=== PATIENT | female | born 2000 | race Caucasian/White ===

== ENCOUNTER 2020-06-28 22:19 | Emergency (ER) | payer OTHER ==
[2020-06-29 00:35] LABS: HEMOGLOBIN 10.5 gm/dl (12.3-15.3); RED BLOOD COUNT 3.96 M/UL (4.00-5.10)
[2020-06-29 00:51] LABS: BUN/CREATININE RATIO 23 (0-10)
== END 2020-06-29 01:49 | disposition home or self-care (01) ==
LOC: ER1 22:19
PROVIDERS: Family Medicine
DX: O20.9 Hemorrhage in early pregnancy, unspecified (principal); O24.911 Unspecified diabetes mellitus in pregnancy, first trimester; O99.331 Smoking (tobacco) complicating pregnancy, first trimester; F17.290 Nicotine dependence, other tobacco product, uncomplicated; Z88.0 Allergy status to penicillin; Z91.040 Latex allergy status; Z3A.10 10 weeks gestation of pregnancy
CPT/HCPCS: 80053; 81001; 83690; 84703; 85025; 99284

== ENCOUNTER 2020-10-10 19:48 | Outpatient (CLI) | payer OTHER | END 2020-10-10 21:00 | disposition home or self-care (01) | LOC: GENOP 19:48 | DX: O42.913 Preterm premature rupture of membranes, unspecified as to length of time between rupture and onset of labor, third trimester (principal); Z3A.35 35 weeks gestation of pregnancy | CPT/HCPCS: 83518; G0463 ==

== ENCOUNTER 2021-03-17 12:24 | Emergency (ER) | payer OTHER | END 2021-03-17 14:52 | disposition home or self-care (01) | LOC: ER1 12:24 | DX: S83.92XA Sprain of unspecified site of left knee, initial encounter (principal); E11.9 Type 2 diabetes mellitus without complications | CPT/HCPCS: 73630; 99283 ==

== ENCOUNTER → 2021-03-28 | Outpatient (CLI) | payer OTHER | LOC: KOH-I 08:00 | DX: S92.312D Displaced fracture of first metatarsal bone, left foot, subsequent encounter for fracture with routine healing (principal); E10.9 Type 1 diabetes mellitus without complications | CPT/HCPCS: 73700 ==

== ENCOUNTER 2021-05-06 17:11 | Emergency (ER) | payer OTHER | END 2021-05-06 19:53 | disposition left against medical advice (07) | LOC: ER1 17:11 | DX: Z53.21 Procedure and treatment not carried out due to patient leaving prior to being seen by health care provider (principal) ==

== ENCOUNTER 2021-05-15 09:17 | Emergency (ER) | payer OTHER | END 2021-05-15 12:00 | disposition home or self-care (01) | LOC: ER1 09:17 | DX: S90.32XA Contusion of left foot, initial encounter (principal); E11.9 Type 2 diabetes mellitus without complications; Z88.0 Allergy status to penicillin; Z88.1 Allergy status to other antibiotic agents; Z88.2 Allergy status to sulfonamides; W20.8XXA Other cause of strike by thrown, projected or falling object, initial encounter; Y92.009 Unspecified place in unspecified non-institutional (private) residence as the place of occurrence of the external cause | CPT/HCPCS: 73630; 99283 ==

== ENCOUNTER → 2021-06-19 | Day surgery (SDC) | payer OTHER ==
[2021-06-19 07:14] LABS: RED BLOOD COUNT 4.18 M/UL (4.00-5.10); WHITE BLOOD COUNT 4.7 K/UL (4.5-11.0)
[2021-06-19 07:23] LABS: BUN/CREATININE RATIO 16 (0-10)
== END | disposition home or self-care (01) ==
LOC: OR 06:13
PROVIDERS: Podiatrist Foot & Ankle Surgery
DX: S92.312A Displaced fracture of first metatarsal bone, left foot, initial encounter for closed fracture (principal); S84.12XA Injury of peroneal nerve at lower leg level, left leg, initial encounter; M89.9 Disorder of bone, unspecified; D64.9 Anemia, unspecified; X58.XXXA Exposure to other specified factors, initial encounter; E11.9 Type 2 diabetes mellitus without complications; Z88.0 Allergy status to penicillin; Z88.2 Allergy status to sulfonamides; Z88.8 Allergy status to other drugs, medicaments and biological substances; Z79.1 Long term (current) use of non-steroidal anti-inflammatories (NSAID); Z79.899 Other long term (current) drug therapy
CPT/HCPCS: 73630; 80048; 84703; 85027; J1100; J1885; J2001; J2250; J2405; J2704; J2795; J3010; J3370; J7120; Q4133

== ENCOUNTER 2021-06-24 18:41 | Emergency (ER) | payer OTHER | END 2021-06-24 20:56 | disposition home or self-care (01) | LOC: ER1 18:41 | DX: Z47.89 Encounter for other orthopedic aftercare (principal); Z88.1 Allergy status to other antibiotic agents; Z88.0 Allergy status to penicillin; Z88.2 Allergy status to sulfonamides | CPT/HCPCS: 99282 ==

== ENCOUNTER → 2021-07-09 | Outpatient (CLI) | payer OTHER | LOC: KOH-I 09:52 | DX: M79.672 Pain in left foot (principal); Q66.72 Congenital pes cavus, left foot; Z96.698 Presence of other orthopedic joint implants | CPT/HCPCS: 73630 ==